=== PATIENT | male | born 1950 | race Caucasian/White ===

== ENCOUNTER 2019-09-30 15:52 | Emergency (ER) | payer MEDICARE, BC ==
--- NOTE | 2019-09-30 16:07 | EDM.PDOC ---
ED HPI GENERAL MEDICAL PROBLEM - General Chief Complaint: General Stated Complaint: PAIN ALL OVER Time Seen by Provider: 09/30/19 16:05 Source of Information: Reports: Patient, Other (Dr. White called ahead to state that he wanted the patient seen to help control spasms and evaluate perineum especially with a CT of abdomen and pelvis.) History Limitations: Reports: No Limitations - History of Present Illness INITIAL COMMENTS - FREE TEXT/NARRATIVE: Sent from clinic because of muscle spasms and need for CT of abdomen and pelvis. Patient did have laboratory studies performed in clinic earlier today which showed normal creatinine, potassium, BUN, white count, hemoglobin, GFR, sodium chloride, CO2 and calcium. Did have a slightly elevated glucose at 158. Days ago was seen in the clinic concern for urinary tract infection. At that time patient had nausea, low-grade fever, chills, abdominal discomfort, loose stools and some mild hematochezia. Onset: Today Duration: Hour(s): (1) Location: Reports: Generalized Quality: Reports: Other (Spasms) Severity: Severe Associated Symptoms: Denies: Confusion, Nausea/Vomiting, Shortness of Breath Left Buttock Pain Score (Numeric/FACES): 10 - Related Data Allergies Allergy/AdvReac Type Severity Reaction Status Date / Time amoxicillin [Amoxicillin] Allergy Hives Verified 09/30/19 16:17 Sulfa (Sulfonamide Allergy Swelling Verified 09/30/19 16:17 Antibiotics) fentanyl AdvReac Hallucinati Verified 09/30/19 16:17 ons Home Meds: Home Meds Ibuprofen 800 mg PO PRN 07/20/13 [History] Insulin Aspart [NovoLOG] units SQ [id number] 07/20/13 [History] Insulin Detemir [Levemir] 24 units SQ BEDTIME 07/20/13 [History] Multivitamins,Therapeutic [Thera] 1 each PO DAILY@12 #100 tab 08/02/13 [Rx] Aspirin [Low Dose Aspirin EC] 81 mg PO DAILY 08/24/13 [History] Past Medical History Endocrine/Metabolic History: Reports: Diabetes, Type II - Past Surgical History Neurological Surgical History: Reports: C-Spine, Discectomy, Laminectomy, Spinal Fusion, Thoracic Spine, Vertebroplasty ED ROS GENERAL - Review of Systems Review Of Systems: See Below Constitutional: Reports: Fever, Chills, Malaise, Fatigue, Night Sweats, Decreased Appetite Cardiovascular: Denies: Edema Endocrine: Reports: No Symptoms GI/Abdominal: Reports: Abdominal Pain, Diarrhea, Nausea : Reports: Other (Bleeding perineal lesions for which she was being seen by Dr. White) Musculoskeletal: Reports: Other (Muscle spasms) Skin: Denies: Rash Neurological: Denies: Confusion, Headache Psychiatric: Reports: Agitation, Anxiety ED EXAM, GENERAL - Physical Exam Exam: See Below Exam Limited By: No Limitations General Appearance: Alert, WD/WN Eye Exam: Bilateral Eye: PERRL Ears: Normal External Exam Nose: Normal Inspection Throat/Mouth: Normal Inspection Neck: Normal Inspection, Supple, Non-Tender Respiratory/Chest: No Respiratory Distress, Lungs Clear GI/Abdominal: Distended, Tender. No: Mass Rectal (Males) Exam: Other (Dr. White evaluated perineal area earlier today) Extremities: Normal Inspection, Normal Range of Motion Psychiatric: Anxious Skin Exam: Warm, Dry Course - Vital Signs Text/Narrative:: CT scan shows a cortical irregularity and sclerosis within the right ischio tuberosity which is suspicious for osteomyelitis. There is also a 2.5 5.5 cm soft tissue abscess overlying the right issue tuberosity. We have drawn blood cultures and will start IV Rocephin. At 1900 I discussed the patient with Dr. White who recommended the patient be transferred to [place] for involvement of surgeons, orthopedics and infectious disease. @ 19:10 discussed pt. w/Dr. Cruz, addiction therapist [facility] at [facility]. Patient has been acc epted for transfer to [facility] Last Recorded V/S: Last Vital Signs Temp 37.1 C 09/30/19 16:24 Pulse 115 H 09/30/19 18:18 Resp 16 09/30/19 18:18 BP 140/77 09/30/19 18:18 Pulse Ox 96 09/30/19 18:18 - Orders/Labs/Meds Orders: Active Orders 24 hr Category Date Time Status CBC W/O DIFF,HEMOGRAM [HEME] Urgent Lab 09/30/19 18:55 Ordered COMPREHENSIVE METABOLIC PN,CMP [CHEM] Urgent Lab 09/30/19 18:55 Ordered CULTURE BLOOD [BC] Urgent Lab 09/30/19 18:52 Ordered CULTURE BLOOD [BC] Urgent Lab 09/30/19 18:52 Ordered LACTIC ACID [CHEM] Urgent Lab 09/30/19 18:55 Ordered Iopamidol [Isovue-300 (61%)] Med 09/30/19 16:30 Active 100 ml IV . DIRECTED Sodium Chloride 0.9% [Normal Saline] 100 ml Med 09/30/19 16:30 Active IV ASDIRECTED cefTRIAXone [Rocephin] 1 gm Med 09/30/19 18:53 Ordered Sodium Chloride 0.9% [Normal Saline] 50 ml IV ONETIME Blood Culture x2 Reflex Set [OM.PC] Urgent Oth 09/30/19 18:51 Ordered Medication Orders Sodium Chloride (Normal Saline) 100 mls @ 3 mls/sec IV ASDIRECTED KATH Last Admin: 09/30/19 17:20 Dose: 3 mls/sec Documented by: KATYA Ceftriaxone Sodium 1 gm/ (Sodium Chloride) 50 mls @ 100 mls/hr IV ONETIME ONE Stop: 09/30/19 19:22 Iopamidol (Isovue-300 (61%)) 100 ml IV . DIRECTED KATH Last Admin: 09/30/19 17:21 Dose: 100 ml Documented by: [employer] Meds: Medications Generic Name Dose Route Start Last Admin Trade Name Freq PRN Reason Stop Dose Admin Sodium Chloride 100 mls @ 3 mls/sec 09/30/19 16:30 09/30/19 17:20 Normal Saline IV 3 mls/sec ASDIRECTED KATH Administration Ceftriaxone Sodium 1 gm/ 50 mls @ 100 mls/hr 09/30/19 18:53 Sodium Chloride IV 09/30/19 19:22 ONETIME ONE Iopamidol 100 ml 09/30/19 16:30 09/30/19 17:21 Isovue-300 (61%) IV 100 ml . DIRECTED KATH Administration Discontinued Medications Generic Name Dose Route Start Last Admin Trade Name Freq PRN Reason Stop Dose Admin Diazepam 5 mg 09/30/19 16:11 09/30/19 16:31 Valium IVPUSH 09/30/19 16:12 5 mg ONETIME ONE Administration Hydromorphone HCl 0.5 mg 09/30/19 16:11 09/30/19 16:29 Dilaudid IVPUSH 09/30/19 16:12 0.5 mg ONETIME ONE Administration Hydromorphone HCl 0.5 mg 09/30/19 17:30 09/30/19 17:35 Dilaudid IVPUSH 09/30/19 17:31 0.5 mg ONETIME ONE Administration Hydromorphone HCl 1 mg 09/30/19 18:57 Dilaudid IVPUSH 09/30/19 18:58 ONETIME ONE Sodium Chloride 1,000 mls @ 500 mls/hr 09/30/19 16:11 09/30/19 16:35 Normal Saline IV 09/30/19 18:10 500 mls/hr .BOLUS ONE Administration Sodium Chloride 10 ml 09/30/19 16:28 09/30/19 17:20 Saline Flush FLUSH 09/30/19 16:29 10 ml ONETIME ONE Administration Departure - Departure Time of Disposition: 19:39 Disposition: DC/Tfer to [facility] 02 Clinical Impression: Muscle spasm, Pelvic abscess in male - Discharge Information Referrals: Jose Sterling MD [Primary Care Provider] - Forms: ED Department Discharge, Interfacility Transfer EMTALA Sepsis Event Note (ED) - Focused Exam Vital Signs: Vital Signs Temp Pulse Resp BP Pulse Ox 09/30/19 18:18 115 H 16 140/77 96 09/30/19 17:35 124 H 16 161/87 H 100 09/30/19 16:38 125 H 121/74 09/30/19 16:24 37.1 C 140 H 20 184/108 H 99 09/30/19 16:18 37.1 C 140 H 20 184/108 H 99 - My Orders Last 24 Hours: My Active Orders 09/30/19 16:30 Iopamidol [Isovue-300 (61%)] 100 ml IV . DIRECTED Sodium Chloride 0.9% [Normal Saline] 100 ml IV ASDIRECTED 09/30/19 18:51 Blood Culture x2 Reflex Set [OM.PC] Urgent 09/30/19 18:52 CULTURE BLOOD [BC] Urgent CULTURE BLOOD [BC] Urgent 09/30/19 18:53 cefTRIAXone [Rocephin] 1 gm Sodium Chloride 0.9% [Normal Saline] 50 ml IV ONETIME 09/30/19 18:55 CBC W/O DIFF,HEMOGRAM [HEME] Urgent COMPREHENSIVE METABOLIC PN,CMP [CHEM] Urgent LACTIC ACID [CHEM] Urgent - Assessment/Plan Last 24 Hours: My Active Orders 09/30/19 16:30 Iopamidol [Isovue-300 (61%)] 100 ml IV . DIRECTED Sodium Chloride 0.9% [Normal Saline] 100 ml IV ASDIRECTED 09/30/19 18:51 Blood Culture x2 Reflex Set [OM.PC] Urgent 09/30/19 18:52 CULTURE BLOOD [BC] Urgent CULTURE BLOOD [BC] Urgent 09/30/19 18:53 cefTRIAXone [Rocephin] 1 gm Sodium Chloride 0.9% [Normal Saline] 50 ml IV ONETIME 09/30/19 18:55 CBC W/O DIFF,HEMOGRAM [HEME] Urgent COMPREHENSIVE METABOLIC PN,CMP [CHEM] Urgent LACTIC ACID [CHEM] Urgent
[2019-09-30] MEDS ORDERED: Sodium Chloride 0.9% 1,000 ML IV ONE (16:11)
[2019-09-30] MEDS ORDERED: HYDROmorphone 0.5 MG/0.5 ML Syringe IVPUSH ONE ×2 (16:11→17:30)
[2019-09-30] MEDS ORDERED: Sodium Chloride 0.9% 100 ML IV SCH (16:30)
[2019-09-30] MEDS ORDERED: Iopamidol 612 MG/ML 100 ML Bottle IV SCH (16:30)
[2019-09-30] MEDS: Sodium Chloride 0.9% 10 ML Syringe FLUSH ONE ×2 (16:34→17:20)
--- NOTE | 2019-09-30 17:59 | CRLCT ---
INDICATION: Abdominal pain. Paraplegic. TECHNIQUE: CT abdomen and pelvis acquired with 100 cc Isovue 300 IV contrast. Coronal and sagittal reconstructions. COMPARISON: None. FINDINGS: Large distal duodenal diverticulum. Small low-attenuation lesion in the inferior right hepatic lobe is too small to characterize but most likely represents a benign cyst or hemangioma. Hepatic and portal veins are patent. The gallbladder, spleen, pancreas, and adrenal glands are negative. Right upper pole renal scarring. Small low-attenuation lesions in both kidneys most likely represent cysts. Symmetric enhancement of the kidneys. No obstructing urinary calculi. Mild nonspecific perinephric stranding bilaterally. Moderately enlarged prostate gland. The bladder is unremarkable. No bowel dilation. Redundant sigmoid colon. Negative appendix. No intraperitoneal free air or fluid. Aortoiliac vascular calcifications. Ectasia of the infrarenal abdominal aorta measuring 2.5 cm in AP dimension. Postoperative changes of a bilateral iliac bypass graft. Surgical clips in both groins. No lymphadenopathy. The lung bases are clear. Coronary artery calcifications. Posterior instrumented fusion of T11-L2. This causes streak artifact in the upper abdomen. Degenerative changes of the spine. There is cortical irregularity and sclerosis within the right ischial tuberosity which could represent osteomyelitis. There is an approximately 2.5 x 5.5 cm peripherally enhancing gas and fluid collection in the soft tissues overlying the right ischial tuberosity (series 2, image 162), compatible with an abscess. IMPRESSION: 1. Cortical irregularity and sclerosis within the right ischial tuberosity suspicious for osteomyelitis. 2. 2.5 x 5.5 cm soft tissue abscess overlying the right ischial tuberosity. 3. No other acute findings in the abdomen or pelvis. Please note that all CT scans at this facility use dose modulation, iterative reconstruction, and/or weight-based dosing when appropriate to reduce radiation dose to as low as reasonably achievable. Dictated by Aleida Mabry MD @ Sep 30 2019 5:45PM Signed by Dr. Aleida Mabry @ Sep 30 2019 5:58PM
[2019-09-30] MEDS ORDERED: cefTRIAXone 1 GM in Sodium Chloride 0.9% 50 ML IV ONE (18:53)
[2019-09-30] MEDS ORDERED: HYDROmorphone 1 MG/ML Syringe IVPUSH ONE (18:57)
[2019-09-30] MEDS ORDERED: cefTRIAXone 1 GM AdvVial IV ONE (19:06)
[2019-09-30] MEDS ORDERED: Sodium Chloride 0.9% 50 ML ONE ×2 (19:06→19:10)
[2019-09-30] MEDS ORDERED: cefTRIAXone 1 GM Vial ONE (19:10)
[2019-09-30] MEDS ORDERED: LORazepam 2 MG/ML SDV IVPUSH PRN (19:30)
[2019-09-30 21:15] VITALS: BP 150/87; PULSE 122
== END 2019-09-30 21:27 ==
LOC: JP.ED 15:52
DX: M62.838 Other muscle spasm (principal); K65.1 Peritoneal abscess; E11.9 Type 2 diabetes mellitus without complications; Z79.4 Long term (current) use of insulin; Z79.82 Long term (current) use of aspirin; Z88.1 Allergy status to other antibiotic agents; Z88.2 Allergy status to sulfonamides; Z88.4 Allergy status to anesthetic agent
CPT/HCPCS: 36415; 74177; 80053; 82962; 83605; 85027; 87040; 96361; 96365; 96375; 96376; 99285; J0696; J1170; J3360; J7030; J7050; Q9967; 99283

== ENCOUNTER 2023-08-17 12:47 | Emergency (ER) | payer MEDICARE, BC ==
[2023-08-17 13:25] LABS: BASOPHILS ABSOLUTE AUTO 0.03 K/uL (0.00-0.10); BASOPHILS PERCENT AUTO 0.1 % (0.1-1.3); EOSINOPHILS ABSOLUTE AUTO 0.05 K/uL (0.00-0.40); EOSINOPHILS PERCENT AUTO 0.2 % (0.0-5.4); HEMATOCRIT 34.1 % (38.4-49.7); HEMOGLOBIN 11.8 g/dL (12.9-16.9); IMMATURE GRAN ABSOLUTE AUTO 0.18 K/uL (0.00-0.23); IMMATURE GRAN PERCENT AUTO 0.8 % (0.0-0.7); LYMPHOCYTES ABSOLUTE AUTO 0.52 K/uL (0.8-3.3); LYMPHOCYTES PERCENT AUTO 2.4 % (11.4-47.7); MEAN CORPUSCULAR HEMOGLOBIN 29.2 pg (31.6-35.5); MEAN CORPUSCULAR HGB CONC 34.6 g/dL (31.6-35.5); MEAN CORPUSCULAR VOLUME 84.4 fL (81.4-99.0); MONOCYTES ABSOLUTE AUTO 0.69 K/uL (0.20-0.90); MONOCYTES PERCENT AUTO 3.2 % (3.3-12.6); NEUTROPHILS PERCENT AUTO 93.3 % (40.0-78.1); PLATELET COUNT,PLT 236 K/uL (130-375); RED BLOOD CELL COUNT 4.04 M/uL (4.14-5.76); WHITE BLOOD CELL COUNT,WBC 21.5 K/uL (3.2-11.0)
[2023-08-17] MEDS ORDERED: Naloxone 0.4 MG/ML SDV IVPUSH PRN (13:33)
[2023-08-17 13:46] LABS: A/G RATIO 0.4 (1.2-2.2); ALANINE AMINOTRANSFERASE,ALT 56 U/L (12-78); ALBUMIN 1.9 g/dL (3.4-5.0); ALKALINE PHOSPHATASE 165 U/L (46-116); ASPARTATE AMNIOTRANSFERASE,AST 33 U/L (15-37); BILIRUBIN TOTAL 0.9 mg/dL (0.2-1.0); BLOOD UREA NITROGEN,BUN 36 mg/dL (7-18); CALCIUM 8.1 mg/dL (8.5-10.1); CARBON DIOXIDE,CO2 19 mmol/L (21-32); CHLORIDE,CL 106 mmol/L (100-108); EST CRCL DRUG DOSING (CG) 38.29 mL/min; ESTIMATED GFR 35 mL/min (>60); GLUCOSE RANDOM 196 mg/dL (74-106); MAGNESIUM 1.7 mg/dL (1.8-2.4); POTASSIUM,K 4.1 mmol/L (3.6-5.2); PROTEIN TOTAL,TP 6.3 g/dL (6.4-8.2); SODIUM,NA 135 mmol/L (140-148)
[2023-08-17] MEDS: HYDROmorphone 1 MG/ML Syringe IVPUSH ONE ×2 (13:47→16:14)
[2023-08-17 13:48] LABS: ANION GAP 14.1 mmol/L (5.0-14.0)
[2023-08-17] MEDS: cefTRIAXone 2 GM in Sodium Chloride 0.9% 50 ML IV ONE (13:48)
[2023-08-17] MEDS: Sodium Chloride 0.9% 1,000 ML IV SCH (13:48)
[2023-08-17 14:14] LABS: APPEARANCE,URINE SLIGHTLY CLOUDY (CLEAR); BILIRUBIN,URINE NEGATIVE (NEGATIVE); COLOR,URINE YELLOW (YELLOW); GLUCOSE,URINE NEGATIVE (NEGATIVE); KETONES,URINE NEGATIVE (NEGATIVE); LEUKOCYTE ESTERASE,URINE NEGATIVE (NEGATIVE); NITRITE,URINE NEGATIVE (NEGATIVE); OCCULT BLOOD,URINE TRACE-LYSED (NEGATIVE); PH,URINE 5.5 (5.0-8.0); PROTEIN,URINE 100 mg/dL (NEGATIVE)
[2023-08-17] MEDS ORDERED: Meropenem 1 GM in Sodium Chloride 0.9% 100 ML IV SCH (14:15)
[2023-08-17 14:23] LABS: EPITHELIAL CELLS,URINE FEW; RBC,URINE 0-5 (0-5); WBC,URINE 0-5 (0-5)
[2023-08-17 14:24] LABS: AMORPHOUS SEDIMENT,URINE MANY; MUCUS,URINE FEW
[2023-08-17 14:25] LABS: BACTERIA,URINE MODERATE
[2023-08-17] MEDS: Meropenem 1 GM in Sodium Chloride 0.9% 100 ML IV SCH (14:54)
[2023-08-17] MEDS: Sodium Chloride 0.9% 100 ML IV ONE (16:58)
[2023-08-17] MEDS: Sodium Chloride 0.9% 10 ML Syringe FLUSH ONE (16:58)
[2023-08-17] MEDS: Iopamidol 612 MG/ML 100 ML Bottle IV ONE (16:58)
[2023-08-17 17:41] VITALS: BP 128/64; PULSE 89
== END 2023-08-17 18:30 ==
LOC: JP.ED 12:47
DX: A41.9 Sepsis, unspecified organism (principal); L03.90 Cellulitis, unspecified; E11.9 Type 2 diabetes mellitus without complications; L89.90 Pressure ulcer of unspecified site, unspecified stage; G82.20 Paraplegia, unspecified; I25.2 Old myocardial infarction; E78.00 Pure hypercholesterolemia, unspecified; F17.210 Nicotine dependence, cigarettes, uncomplicated; Z88.0 Allergy status to penicillin; Z88.2 Allergy status to sulfonamides; Z88.6 Allergy status to analgesic agent; Z79.82 Long term (current) use of aspirin; Z79.4 Long term (current) use of insulin; Z79.899 Other long term (current) drug therapy
CPT/HCPCS: 36415; 74177; 80053; 81001; 83605; 83735; 84145; 85025; 87040; 87070; 87077; 87186; 87205; 96361; 96365; 96367; 96375; 96376; 99285-25; J0696; J1170; J2185; J3370; J3490; J7030; J7050; Q9967